=== PATIENT | male | born 1950 | race Caucasian/White ===

== ENCOUNTER 2020-04-30 00:15 | Inpatient (IN) ==
[2020-04-30] MEDS ORDERED: ONDANSETRON 4 MG/2 ML VIAL IV STA (00:39)
[2020-04-30] MEDS ORDERED: SODIUM CHLORIDE 0.9% 1,000 ML IV STA (00:39)
[2020-04-30] MEDS ORDERED: PANTOPRAZOLE INJ 80 MG in SODIUM CHLORIDE 0.9% 100 ML IV STA (00:39)
[2020-04-30] MEDS ORDERED: PANTOPRAZOLE 40 MG VIAL IV ONE (00:45)
[2020-04-30 00:49] LABS: Basophils % 0.3 % (0.0-0.8); Eosinophils # 0.1 10*3/uL (0.0-0.87); Eosinophils % 0.5 % (0.00-10.9); Hematocrit 42.3 VOL% (42.0-52.0); Hemoglobin 14.5 GM/DL (14.0-18.0); Immature Granulocytes % 0.4 %; Immature Granulocytes Absolute 0.05 #; Lymphocytes # 1.6 10*3/uL (1.4-4.0); Lymphocytes % 11.8 % (21.2-54.2); Mean Corpuscular HGB Conc 34.3 GM/DL (32-36); Mean Platelet Volume 10.1 FL (9.6-12.0); Monocytes % 6.5 % (1.7-12.7); Neutrophils % 80.5 % (38.7-73.9); Platelet Count 263 T/CUMM (130-400); Red Cell Distribution Width 16.7 % (9.3-17.3); White Blood Count 13.9 T/CUMM (4-12)
[2020-04-30 01:00] LABS: PT Patient Result 10.8 SECS (9.8-11.9); Partial Thromboplastin Time 25.8 SECS (23.9-33.8)
[2020-04-30 01:28] LABS: Albumin 3.9 G/DL (3.4-5.0); Calcium 9.1 MG/DL (8.5-10.1); Osmolality,Calculated 278.5 MOS/KG (273-304); Total Protein 8.3 G/DL (6.4-8.3)
[2020-04-30] MEDS ORDERED: PANTOPRAZOLE INJ 200 MG in SODIUM CHLORIDE 0.9% 250 ML IV SCH (02:00)
[2020-04-30] MEDS ORDERED: ONDANSETRON 4 MG/2 ML VIAL IV PRN (02:03)
[2020-04-30] MEDS ORDERED: GLUCAGON 1 MG VIAL IM PRN (02:03)
[2020-04-30] MEDS ORDERED: ACETAMINOPHEN 325 MG TABLET PO PRN (02:03)
[2020-04-30] MEDS ORDERED: DEXTROSE 50% 25 GM/50 ML VIAL IV PRN (02:03)
[2020-04-30] MEDS ORDERED: MORPHINE 4 MG/1 ML VIAL IV PRN ×2 (04:13→11:40)
[2020-04-30] MEDS ORDERED: SODIUM CHLORIDE 0.9% 1,000 ML IV SCH (10:30)
[2020-04-30] MEDS: PIPERACILLIN/TAZOBACTAM 3,375 MG in SODIUM CHLORIDE 0.9% 100 ML IV SCH ×2 (12:32→22:49)
[2020-04-30] MEDS: MORPHINE 4 MG/1 ML VIAL IV PRN ×2 (13:49→20:32)
[2020-04-30] MEDS: SODIUM CHLORIDE 0.9% 1,000 ML IV SCH ×2 (13:50→18:42)
[2020-04-30] MEDS: PANTOPRAZOLE 40 MG VIAL IV SCH (20:31)
[2020-05-01 04:07] LABS: Basophils % 0.2 % (0.0-0.8); Eosinophils # 0.1 10*3/uL (0.0-0.87); Eosinophils % 0.7 % (0.00-10.9); Hematocrit 25.8 VOL% (42.0-52.0); Immature Granulocytes % 0.6 %; Immature Granulocytes Absolute 0.06 #; Lymphocytes # 1.6 10*3/uL (1.4-4.0); Lymphocytes % 16.3 % (21.2-54.2); Mean Corpuscular HGB Conc 32.9 GM/DL (32-36); Mean Corpuscular Volume 96.6 FL (87-102); Mean Platelet Volume 10.4 FL (9.6-12.0); Monocytes % 10.5 % (1.7-12.7); Neutrophils % 71.7 % (38.7-73.9); Platelet Count 180 T/CUMM (130-400); Red Blood Count 2.67 MC/CUMM (3.8-5.5); Red Cell Distribution Width 16.5 % (9.3-17.3); White Blood Count 9.6 T/CUMM (4-12)
[2020-05-01 04:09] LABS: Hemoglobin 8.5 GM/DL (14.0-18.0)
[2020-05-01] MEDS: SODIUM CHLORIDE 0.9% 1,000 ML IV SCH ×3 (04:14→20:23)
[2020-05-01 04:24] LABS: Risk Ratio 1.98; VLDL CHOLESTEROL 11.8 MG/DL
[2020-05-01 04:26] LABS: Albumin 2.7 G/DL (3.4-5.0); Bilirubin,Total 1.1 MG/DL (0.2-1.0); Calcium 8.2 MG/DL (8.5-10.1); Osmolality,Calculated 272.8 MOS/KG (273-304); Total Protein 5.9 G/DL (6.4-8.3)
[2020-05-01] MEDS: PIPERACILLIN/TAZOBACTAM 3,375 MG in SODIUM CHLORIDE 0.9% 100 ML IV SCH ×2 (06:10→16:01)
[2020-05-01] MEDS: PANTOPRAZOLE 40 MG VIAL IV SCH ×2 (08:24→20:24)
[2020-05-01] MEDS ORDERED: LACTATED RINGERS 1,000 ML IV SCH (09:00)
[2020-05-01] MEDS ORDERED: propofoL 200 MG/20 ML VIAL IV ONE (10:00)
[2020-05-01] MEDS ORDERED: LIDOCAINE 2% 5 ML VIAL ONE (10:00)
[2020-05-01] MEDS ORDERED: ETOMIDATE 20 MG/10 ML VIAL IV ONE (10:00)
[2020-05-01] MEDS: MORPHINE 4 MG/1 ML VIAL IV PRN ×2 (13:02→20:26)
[2020-05-01] MEDS: TAMSULOSIN 0.4 MG CAPSULE PO SCH (15:48)
[2020-05-01 18:16] LABS: Hematocrit 25.8 VOL% (42.0-52.0); Hemoglobin 8.4 GM/DL (14.0-18.0)
[2020-05-02 00:06] LABS: Hematocrit 21.7 VOL% (42.0-52.0); Hemoglobin 7.2 GM/DL (14.0-18.0)
[2020-05-02] MEDS: PIPERACILLIN/TAZOBACTAM 3,375 MG in SODIUM CHLORIDE 0.9% 100 ML IV SCH ×2 (00:29→09:26)
[2020-05-02 04:48] LABS: Basophils % 0.3 % (0.0-0.8); Eosinophils # 0.1 10*3/uL (0.0-0.87); Hematocrit 21.8 VOL% (42.0-52.0); Hemoglobin 7.2 GM/DL (14.0-18.0); Immature Granulocytes % 0.3 %; Immature Granulocytes Absolute 0.02 #; Lymphocytes # 1.1 10*3/uL (1.4-4.0); Lymphocytes % 16.2 % (21.2-54.2); Mean Corpuscular Volume 97.8 FL (87-102); Mean Platelet Volume 10.5 FL (9.6-12.0); Monocytes % 10.9 % (1.7-12.7); Neutrophils % 70.3 % (38.7-73.9); Platelet Count 152 T/CUMM (130-400); Red Blood Count 2.23 MC/CUMM (3.8-5.5); Red Cell Distribution Width 15.9 % (9.3-17.3); White Blood Count 6.6 T/CUMM (4-12)
[2020-05-02 05:07] LABS: Albumin 2.3 G/DL (3.4-5.0); Bilirubin,Total 0.9 MG/DL (0.2-1.0); Calcium 7.9 MG/DL (8.5-10.1); Osmolality,Calculated 271.8 MOS/KG (273-304); Total Protein 5.6 G/DL (6.4-8.3)
[2020-05-02] MEDS: SODIUM CHLORIDE 0.9% 1,000 ML IV SCH ×2 (06:17→06:22)
[2020-05-02] MEDS: TAMSULOSIN 0.4 MG CAPSULE PO SCH (09:26)
[2020-05-02] MEDS: PANTOPRAZOLE 40 MG VIAL IV SCH ×2 (09:26→21:03)
[2020-05-02] MEDS ORDERED: SODIUM CHLORIDE 0.9% 1,000 ML IV PRN (09:51)
[2020-05-02] MEDS: MORPHINE 4 MG/1 ML VIAL IV PRN (21:14)
[2020-05-03] MEDS: PIPERACILLIN/TAZOBACTAM 3,375 MG in SODIUM CHLORIDE 0.9% 100 ML IV SCH ×4 (01:27→17:36)
[2020-05-03 04:09] LABS: Basophils % 0.4 % (0.0-0.8); Eosinophils # 0.3 10*3/uL (0.0-0.87); Eosinophils % 5.7 % (0.00-10.9); Hematocrit 27.1 VOL% (42.0-52.0); Hemoglobin 9.2 GM/DL (14.0-18.0); Immature Granulocytes % 0.2 %; Immature Granulocytes Absolute 0.01 #; Lymphocytes % 17.4 % (21.2-54.2); Mean Corpuscular HGB Conc 33.9 GM/DL (32-36); Mean Corpuscular Volume 93.8 FL (87-102); Mean Platelet Volume 10.6 FL (9.6-12.0); Monocytes % 12.3 % (1.7-12.7); Platelet Count 147 T/CUMM (130-400); Red Blood Count 2.89 MC/CUMM (3.8-5.5); Red Cell Distribution Width 15.2 % (9.3-17.3); White Blood Count 5.5 T/CUMM (4-12)
[2020-05-03 04:43] LABS: Albumin 2.5 G/DL (3.4-5.0); Bilirubin,Total 0.7 MG/DL (0.2-1.0); Calcium 8.1 MG/DL (8.5-10.1); Osmolality,Calculated 271.7 MOS/KG (273-304); Total Protein 6.1 G/DL (6.4-8.3)
[2020-05-03] MEDS: SODIUM CHLORIDE 0.9% 1,000 ML IV SCH (08:20)
[2020-05-03] MEDS: TAMSULOSIN 0.4 MG CAPSULE PO SCH (09:19)
[2020-05-03] MEDS: PANTOPRAZOLE 40 MG VIAL IV SCH ×2 (09:19→21:42)
[2020-05-04] MEDS: PIPERACILLIN/TAZOBACTAM 3,375 MG in SODIUM CHLORIDE 0.9% 100 ML IV SCH ×2 (02:01→08:33)
[2020-05-04 06:34] LABS: Basophils % 0.3 % (0.0-0.8); Eosinophils # 0.3 10*3/uL (0.0-0.87); Eosinophils % 4.7 % (0.00-10.9); Hematocrit 26.5 VOL% (42.0-52.0); Immature Granulocytes % 0.7 %; Immature Granulocytes Absolute 0.04 #; Lymphocytes % 17.6 % (21.2-54.2); Mean Platelet Volume 10.5 FL (9.6-12.0); Neutrophils % 62.7 % (38.7-73.9); Platelet Count 178 T/CUMM (130-400); Red Blood Count 2.85 MC/CUMM (3.8-5.5); Red Cell Distribution Width 15.3 % (9.3-17.3); White Blood Count 5.8 T/CUMM (4-12)
[2020-05-04 06:50] LABS: Albumin 2.6 G/DL (3.4-5.0); Bilirubin,Total 0.6 MG/DL (0.2-1.0); Calcium 8.4 MG/DL (8.5-10.1); Osmolality,Calculated 272.5 MOS/KG (273-304)
[2020-05-04] MEDS: TAMSULOSIN 0.4 MG CAPSULE PO SCH (08:34)
[2020-05-04] MEDS: PANTOPRAZOLE 40 MG VIAL IV SCH (08:34)
[2020-05-04 11:50] VITALS: BP 148/72
== END 2020-05-04 12:55 | disposition home or self-care (01) | DRG 377 ==
LOC: N.EDINP 00:15 → N.ED 00:15 → N.5E 03:37
PROVIDERS: ADMIT Internal Medicine; ATTEND Internal Medicine

== ENCOUNTER 2022-04-23 08:33 | Inpatient (IN) ==
[2022-04-23] MEDS ORDERED: ONDANSETRON 4 MG/2 ML VIAL IV STA (09:13)
[2022-04-23] MEDS ORDERED: SODIUM CHLORIDE 0.9% 1,000 ML IV STA (09:13)
[2022-04-23] MEDS ORDERED: HYDROmorphone 1 MG/1 ML SYRINGE IV STA (09:13)
[2022-04-23 09:35] LABS: Basophils % 0.2 % (0.0-0.8); Eosinophils % 0.1 % (0.00-10.9); Hematocrit 47.7 VOL% (42.0-52.0); Hemoglobin 16.3 GM/DL (14.0-18.0); Immature Granulocytes % 0.4 %; Immature Granulocytes Absolute 0.07 #; Lymphocytes # 0.6 10*3/uL (1.4-4.0); Lymphocytes % 3.7 % (21.2-54.2); Mean Corpuscular HGB Conc 34.2 GM/DL (32-36); Mean Corpuscular Volume 101.3 FL (87-102); Monocytes # 0.8 10*3/uL (0.11-0.8); Monocytes % 5.2 % (1.7-12.7); Neutrophils % 90.4 % (38.7-73.9); Platelet Count 202 T/CUMM (130-400); Red Blood Count 4.71 MC/CUMM (3.8-5.5); Red Cell Distribution Width 13.2 % (9.3-17.3); White Blood Count 16.1 T/CUMM (4-12)
[2022-04-23 09:47] LABS: Albumin 4.2 G/DL (3.4-5.0); Bilirubin,Total 0.4 MG/DL (0.20-1.00); Calcium 9.2 MG/DL (8.5-10.1); Osmolality,Calculated 279.4 MOS/KG (273-304); Potassium 5.2 MMOL/L (3.5-5.1); Total Protein 8.1 G/DL (6.4-8.2)
[2022-04-23 09:56] LABS: Anisocytosis 1+; Band Neutrophils 1 % (0-10); Lymphocytes 6 % (20-55); Macrocytosis 1+; Platelet Estimate Normal; Total Cells Counted 100
[2022-04-23 10:32] LABS: Glucose,Urine (UA) 100 mg/dL (Negative); Mucus,Urine Occasional /LPF (Occasional); Protein,Urine Negative (Negative); RBC,Urine 19 /HPF (0-4); Squamous Epithelial Cell,Urine Occasional /HPF (0-10); Urine Appearance Clear (Clear); Urine Color Yellow (Yellow); Urine pH 5.5 (4.5-8.0)
[2022-04-23 10:33] LABS: Bilirubin,Urine Negative (Negative); Blood, Urine Moderate mg/dL (Negative); Ketones,Urine Negative (Negative); Nitrite,Urine Negative (Negative); Urine Urobilinogen 0.2 eU/dL (<2.0)
[2022-04-23] MEDS ORDERED: ALBUTEROL/IPRATROPIUM 3 ML NEB RESP TX PRN (12:19)
[2022-04-23] MEDS ORDERED: ONDANSETRON 4 MG/2 ML VIAL IV PRN (12:19)
[2022-04-23] MEDS ORDERED: INFLUENZA VIRUS VACCINE 0.5 ML SYRINGE IM ONE (14:46)
[2022-04-24 05:39] LABS: Basophils % 0.1 % (0.0-0.8); Eosinophils # 0.1 10*3/uL (0.0-0.87); Eosinophils % 1.6 % (0.00-10.9); Hematocrit 42.4 VOL% (42.0-52.0); Hemoglobin 14.6 GM/DL (14.0-18.0); Immature Granulocytes % 0.2 %; Immature Granulocytes Absolute 0.02 #; Lymphocytes # 1.6 10*3/uL (1.4-4.0); Lymphocytes % 19.3 % (21.2-54.2); Mean Corpuscular HGB Conc 34.4 GM/DL (32-36); Mean Corpuscular Volume 103.4 FL (87-102); Mean Platelet Volume 10.9 FL (9.6-12.0); Monocytes # 0.9 10*3/uL (0.11-0.8); Monocytes % 10.4 % (1.7-12.7); Neutrophils % 68.4 % (38.7-73.9); Platelet Count 181 T/CUMM (130-400); Red Cell Distribution Width 13.5 % (9.3-17.3); White Blood Count 8.5 T/CUMM (4-12)
[2022-04-24 06:16] LABS: Albumin 3.3 G/DL (3.4-5.0); Bilirubin,Total 0.8 MG/DL (0.20-1.00); Potassium 4.7 MMOL/L (3.5-5.1); Total Protein 6.3 G/DL (6.4-8.2)
[2022-04-24 07:34] LABS: Risk Ratio 2.27; Thyroid Stimulating Hormone 1.6 uIU/ml (0.358-3.74); VLDL Cholesterol 10.2 MG/DL
[2022-04-24] MEDS: PANTOPRAZOLE 40 MG TABLET PO SCH (09:15)
[2022-04-24] MEDS: VALSARTAN 80 MG TABLET PO SCH (12:31)
[2022-04-24] MEDS: CHLORTHALIDONE 25 MG TABLET PO SCH (12:31)
[2022-04-24] MEDS: NICOTINE 14 MG/24 HR PATCH TRANSDERM SCH (12:32)
[2022-04-24] MEDS: METOPROLOL TARTRATE 25 MG TABLET PO SCH (20:18)
[2022-04-25 04:48] LABS: Basophils % 0.4 % (0.0-0.8); Eosinophils # 0.3 10*3/uL (0.0-0.87); Eosinophils % 3.2 % (0.00-10.9); Hemoglobin 15.2 GM/DL (14.0-18.0); Immature Granulocytes % 0.4 %; Immature Granulocytes Absolute 0.03 #; Lymphocytes # 1.8 10*3/uL (1.4-4.0); Lymphocytes % 20.9 % (21.2-54.2); Mean Corpuscular HGB Conc 34.5 GM/DL (32-36); Mean Corpuscular Volume 101.4 FL (87-102); Mean Platelet Volume 10.2 FL (9.6-12.0); Monocytes % 11.3 % (1.7-12.7); Neutrophils % 63.8 % (38.7-73.9); Platelet Count 181 T/CUMM (130-400); Red Blood Count 4.34 MC/CUMM (3.8-5.5); Red Cell Distribution Width 13.3 % (9.3-17.3); White Blood Count 8.5 T/CUMM (4-12)
[2022-04-25 05:12] LABS: Albumin 3.3 G/DL (3.4-5.0); Bilirubin,Total 0.6 MG/DL (0.20-1.00); Calcium 9.2 MG/DL (8.5-10.1); Osmolality,Calculated 272.8 MOS/KG (273-304); Potassium 3.9 MMOL/L (3.5-5.1); Total Protein 7.1 G/DL (6.4-8.2)
[2022-04-25 07:35] VITALS: BP 151/80
[2022-04-25] MEDS: PANTOPRAZOLE 40 MG TABLET PO SCH (08:47)
[2022-04-25] MEDS: CHLORTHALIDONE 25 MG TABLET PO SCH (08:47)
[2022-04-25] MEDS: METOPROLOL TARTRATE 25 MG TABLET PO SCH (08:47)
[2022-04-25] MEDS: VALSARTAN 80 MG TABLET PO SCH (08:47)
[2022-04-25] MEDS: NICOTINE 14 MG/24 HR PATCH TRANSDERM SCH (08:48)
== END 2022-04-25 13:00 | disposition home or self-care (01) | DRG 699 ==
LOC: N.ED 08:33 → N.EDINP 12:19 → SUATTDRO 12:19 → N.3E 13:33
PROVIDERS: ADMIT Family Medicine; ATTEND Family Medicine

== ENCOUNTER 2022-08-03 06:03 | Inpatient (IN) ==
[2022-07-27 12:30] LABS: Basophils % 0.6 % (0.0-0.8); Eosinophils # 0.2 10*3/uL (0.0-0.87); Eosinophils % 2.8 % (0.00-10.9); Hematocrit 45.5 VOL% (42.0-52.0); Hemoglobin 15.3 GM/DL (14.0-18.0); Immature Granulocytes % 0.4 %; Immature Granulocytes Absolute 0.03 #; Lymphocytes % 26.9 % (21.2-54.2); Mean Corpuscular HGB Conc 33.6 GM/DL (32-36); Mean Corpuscular Volume 100.4 FL (87-102); Mean Platelet Volume 11.1 FL (9.6-12.0); Monocytes # 0.5 10*3/uL (0.11-0.8); Monocytes % 7.3 % (1.7-12.7); Platelet Count 207 T/CUMM (130-400); Red Blood Count 4.53 MC/CUMM (3.8-5.5); Red Cell Distribution Width 13.6 % (9.3-17.3); White Blood Count 7.3 T/CUMM (4-12)
[2022-07-27 13:02] LABS: Albumin 4.3 G/DL (3.4-5.0); Bilirubin,Total 0.9 MG/DL (0.20-1.00); Calcium 9.4 MG/DL (8.5-10.1); Osmolality,Calculated 279.5 MOS/KG (273-304); Potassium 4.4 MMOL/L (3.5-5.1); Total Protein 7.7 G/DL (6.4-8.2)
[2022-08-03] MEDS ORDERED: ROCURONIUM 50 MG/5 ML VIAL IV ONE ×2 (06:18→09:23)
[2022-08-03] MEDS ORDERED: fentaNYL 100 MCG/2 ML VIAL ONE ×2 (06:18→08:28)
[2022-08-03] MEDS ORDERED: propofoL 200 MG/20 ML VIAL IV ONE (06:18)
[2022-08-03] MEDS ORDERED: LIDOCAINE 2% 5 ML VIAL ONE (06:18)
[2022-08-03] MEDS: LACTATED RINGERS 1,000 ML IV SCH ×2 (06:20→15:14)
[2022-08-03] MEDS ORDERED: buprenorphine HCL 0.3 MG/ML VIAL ONE (06:26)
[2022-08-03] MEDS ORDERED: ALVIMOPAN 12 MG CAPSULE PO ONE (06:30)
[2022-08-03] MEDS ORDERED: cefTRIAXone 1,000 MG in SODIUM CHLORIDE 0.9% 100 ML IV ONE (06:30)
[2022-08-03] MEDS ORDERED: MIDAZOLAM 2 MG/2 ML VIAL ONE (06:33)
[2022-08-03] MEDS ORDERED: ROPIVACAINE 0.5% 30 ML VIAL ONE (06:34)
[2022-08-03] MEDS ORDERED: ALBUTEROL 2.5 MG/3 ML NEB RESP TX ONE (06:35)
[2022-08-03] MEDS ORDERED: FAMOTIDINE 20 MG/2 ML VIAL IV ONE ×2 (06:46→06:47)
[2022-08-03] MEDS ORDERED: LACTATED RINGERS 1,000 ML IV ONE (07:40)
[2022-08-03] MEDS ORDERED: SUCCINYLCHOLINE 200 MG/10 ML VIAL ONE (07:40)
[2022-08-03] MEDS ORDERED: ePHEDrine 50 MG/ML VIAL ONE (07:45)
[2022-08-03] MEDS ORDERED: ONDANSETRON 4 MG/2 ML VIAL ONE ×2 (08:12→11:58)
[2022-08-03] MEDS ORDERED: SEVOFLURANE 1 UNIT/15 MINUTE INH ONE ×10 (09:16→12:33)
[2022-08-03] MEDS ORDERED: GLYCOPYRROLATE 0.4 MG/2 ML VIAL ONE (09:16)
[2022-08-03] MEDS ORDERED: PHENYLEPHRINE 1 MG/10 ML SYRINGE IV ONE ×2 (09:57→11:36)
[2022-08-03] MEDS ORDERED: SODIUM CHLORIDE 0.9% 1,000 ML IV ONE (11:38)
[2022-08-03] MEDS ORDERED: SUGAMMADEX 200 MG/2 ML VIAL IV ONE (11:58)
[2022-08-03] MEDS ORDERED: SIMETHICONE CHEW 125 MG TABLET PO PRN (12:22)
[2022-08-03] MEDS ORDERED: ONDANSETRON 4 MG/2 ML VIAL IV PRN (12:22)
[2022-08-03] MEDS ORDERED: diphenhydrAMINE 50 MG/1 ML VIAL IV PRN (12:22)
[2022-08-03] MEDS ORDERED: PROMETHAZINE 25 MG/1 ML VIAL IM PRN (12:22)
[2022-08-03 12:47] LABS: Amorphous Crystals,Urine Occasional /HPF (Few); Bacteria,Urine Occasional /HPF (Few); Mucus,Urine Occasional /LPF (Occasional)
[2022-08-03 12:48] LABS: Bilirubin,Urine Negative (Negative); Blood, Urine Trace mg/dL (Negative); Glucose,Urine (UA) Negative (Negative); Ketones,Urine Negative (Negative); Nitrite,Urine Negative (Negative); Protein,Urine Negative (Negative); Urine Appearance Clear (Clear); Urine Color Yellow (Yellow)
[2022-08-03 14:00] LABS: Basophils % 0.3 % (0.0-0.8); Eosinophils # 0.1 10*3/uL (0.0-0.87); Eosinophils % 0.6 % (0.00-10.9); Hematocrit 40.8 VOL% (42.0-52.0); Hemoglobin 13.9 GM/DL (14.0-18.0); Immature Granulocytes % 0.3 %; Immature Granulocytes Absolute 0.03 #; Lymphocytes # 1.4 10*3/uL (1.4-4.0); Lymphocytes % 13.8 % (21.2-54.2); Mean Corpuscular HGB Conc 34.1 GM/DL (32-36); Mean Corpuscular Volume 101.5 FL (87-102); Monocytes # 0.7 10*3/uL (0.11-0.8); Monocytes % 6.6 % (1.7-12.7); Neutrophils % 78.4 % (38.7-73.9); Platelet Count 164 T/CUMM (130-400); Red Blood Count 4.02 MC/CUMM (3.8-5.5); Red Cell Distribution Width 13.5 % (9.3-17.3); White Blood Count 10.3 T/CUMM (4-12)
[2022-08-03 14:18] LABS: Calcium 8.7 MG/DL (8.5-10.1); Osmolality,Calculated 279.4 MOS/KG (273-304); Potassium 3.9 MMOL/L (3.5-5.1)
[2022-08-03] MEDS: SODIUM CHLORIDE 0.9% 1,000 ML IV SCH ×2 (15:02→21:39)
[2022-08-03] MEDS: oxyCODONE/ACETAMINOPHEN 5-325 MG TABLET PO PRN ×2 (15:09→21:31)
[2022-08-03] MEDS: OXYBUTYNIN 5 MG TABLET PO SCH ×2 (15:09→21:31)
[2022-08-03] MEDS: ACETAMINOPHEN 325 MG TABLET PO SCH ×2 (15:09→18:05)
[2022-08-03] MEDS: DOCUSATE SODIUM 100 MG CAPSULE PO SCH (21:31)
[2022-08-03] MEDS: METOPROLOL TARTRATE 25 MG TABLET PO SCH (21:31)
[2022-08-03] MEDS: ROSUVASTATIN 20 MG TABLET PO SCH (21:31)
[2022-08-03] MEDS: ALVIMOPAN 12 MG CAPSULE PO SCH (21:32)
[2022-08-04] MEDS: ACETAMINOPHEN 325 MG TABLET PO SCH ×5 (00:16→23:32)
[2022-08-04] MEDS: SODIUM CHLORIDE 0.9% 1,000 ML IV SCH ×4 (02:40→21:11)
[2022-08-04] MEDS: PANTOPRAZOLE 20 MG TABLET PO SCH (05:30)
[2022-08-04 05:53] LABS: Basophils % 0.6 % (0.0-0.8); Eosinophils # 0.2 10*3/uL (0.0-0.87); Eosinophils % 2.3 % (0.00-10.9); Hematocrit 38.7 VOL% (42.0-52.0); Hemoglobin 12.9 GM/DL (14.0-18.0); Immature Granulocytes % 0.3 %; Immature Granulocytes Absolute 0.02 #; Lymphocytes # 1.4 10*3/uL (1.4-4.0); Lymphocytes % 19.8 % (21.2-54.2); Mean Corpuscular HGB Conc 33.3 GM/DL (32-36); Mean Corpuscular Volume 102.9 FL (87-102); Mean Platelet Volume 10.9 FL (9.6-12.0); Monocytes # 0.7 10*3/uL (0.11-0.8); Monocytes % 9.5 % (1.7-12.7); Neutrophils % 67.5 % (38.7-73.9); Platelet Count 168 T/CUMM (130-400); Red Blood Count 3.76 MC/CUMM (3.8-5.5); Red Cell Distribution Width 13.9 % (9.3-17.3); White Blood Count 7.1 T/CUMM (4-12)
[2022-08-04 06:16] LABS: Calcium 8.1 MG/DL (8.5-10.1); Osmolality,Calculated 280.1 MOS/KG (273-304); Potassium 4.2 MMOL/L (3.5-5.1)
[2022-08-04] MEDS ORDERED: MAGNESIUM SULF RIDER 4 GM/100 ML PREMIX IV PRN (07:37)
[2022-08-04] MEDS ORDERED: MAGNESIUM SULF RIDER 2 GM/50 ML PREMIX IV PRN (07:37)
[2022-08-04] MEDS ORDERED: THIAMINE 200 MG/2 ML VIAL IV ONE (08:00)
[2022-08-04] MEDS: OXYBUTYNIN 5 MG TABLET PO SCH ×3 (08:47→21:15)
[2022-08-04] MEDS: METOPROLOL TARTRATE 25 MG TABLET PO SCH ×2 (08:47→21:15)
[2022-08-04] MEDS: oxyCODONE/ACETAMINOPHEN 5-325 MG TABLET PO PRN ×3 (08:47→21:14)
[2022-08-04] MEDS: CHLORTHALIDONE 25 MG TABLET PO SCH (08:47)
[2022-08-04] MEDS: DOCUSATE SODIUM 100 MG CAPSULE PO SCH ×2 (08:47→21:15)
[2022-08-04] MEDS: ALVIMOPAN 12 MG CAPSULE PO SCH ×2 (08:48→21:15)
[2022-08-04] MEDS: cefTRIAXone 1,000 MG in SODIUM CHLORIDE 0.9% 100 ML IV SCH (08:49)
[2022-08-04] MEDS: ALBUTEROL/IPRATROPIUM 3 ML NEB RESP TX SCH ×2 (12:00→19:57)
[2022-08-04] MEDS: CLORAZEPATE 7.5 MG TABLET PO SCH ×2 (14:37→21:14)
[2022-08-04] MEDS: FOLIC ACID INJ 1 MG in SYRINGE 1 EACH IV SCH (14:39)
[2022-08-04] MEDS: ROSUVASTATIN 20 MG TABLET PO SCH (21:15)
[2022-08-05] MEDS: ALBUTEROL/IPRATROPIUM 3 ML NEB RESP TX SCH ×2 (01:06→07:41)
[2022-08-05] MEDS: SODIUM CHLORIDE 0.9% 1,000 ML IV SCH (04:30)
[2022-08-05] MEDS: ACETAMINOPHEN 325 MG TABLET PO SCH (05:42)
[2022-08-05] MEDS: PANTOPRAZOLE 20 MG TABLET PO SCH (05:42)
[2022-08-05 06:07] LABS: Basophils % 0.2 % (0.0-0.8); Eosinophils # 0.1 10*3/uL (0.0-0.87); Eosinophils % 0.7 % (0.00-10.9); Hematocrit 41.8 VOL% (42.0-52.0); Hemoglobin 14.5 GM/DL (14.0-18.0); Immature Granulocytes % 0.8 %; Immature Granulocytes Absolute 0.09 #; Lymphocytes # 1.1 10*3/uL (1.4-4.0); Lymphocytes % 10.1 % (21.2-54.2); Mean Corpuscular HGB Conc 34.7 GM/DL (32-36); Mean Corpuscular Volume 100.2 FL (87-102); Mean Platelet Volume 10.6 FL (9.6-12.0); Monocytes # 0.8 10*3/uL (0.11-0.8); Monocytes % 7.1 % (1.7-12.7); Neutrophils % 81.1 % (38.7-73.9); Platelet Count 174 T/CUMM (130-400); Red Blood Count 4.17 MC/CUMM (3.8-5.5); Red Cell Distribution Width 13.2 % (9.3-17.3); White Blood Count 11.3 T/CUMM (4-12)
[2022-08-05 06:19] LABS: Calcium 9.1 MG/DL (8.5-10.1); Osmolality,Calculated 270.8 MOS/KG (273-304); Potassium 3.8 MMOL/L (3.5-5.1)
[2022-08-05] MEDS: oxyCODONE/ACETAMINOPHEN 5-325 MG TABLET PO PRN (07:16)
[2022-08-05 08:30] VITALS: BP 150/70
[2022-08-05] MEDS: FOLIC ACID INJ 1 MG in SYRINGE 1 EACH IV SCH (09:08)
[2022-08-05] MEDS: cefTRIAXone 1,000 MG in SODIUM CHLORIDE 0.9% 100 ML IV SCH (09:12)
[2022-08-05] MEDS: OXYBUTYNIN 5 MG TABLET PO SCH (09:13)
[2022-08-05] MEDS: CHLORTHALIDONE 25 MG TABLET PO SCH (09:13)
[2022-08-05] MEDS: METOPROLOL TARTRATE 25 MG TABLET PO SCH (09:13)
[2022-08-05] MEDS: ALVIMOPAN 12 MG CAPSULE PO SCH (09:13)
[2022-08-05] MEDS: CLORAZEPATE 7.5 MG TABLET PO SCH (09:13)
[2022-08-05] MEDS: DOCUSATE SODIUM 100 MG CAPSULE PO SCH (09:13)
== END 2022-08-05 11:30 | disposition home or self-care (01) | DRG 708 ==
LOC: N.SDSINP 06:03 → N.3E 14:11
PROVIDERS: ADMIT Surgery; ATTEND Surgery